=== PATIENT | female | born 1990 | race Caucasian/White ===

== ENCOUNTER 2017-04-23 15:42 | Emergency (ER) | payer MEDICAID ==
[~2017-04-23] VITALS: Ht 157.5 cm; Wt 74.8 kg
[2017-04-23 15:52] VITALS: BP 133/92
== END 2017-04-23 16:29 | disposition home or self-care (01) ==
LOC: ER 15:46
DX: H66.92 Otitis media, unspecified, left ear (principal); H60.92 Unspecified otitis externa, left ear
CPT/HCPCS: 99283; A4606; Z7610